=== PATIENT | female | born 1940 | race Caucasian/White ===

== ENCOUNTER 2017-08-09 10:57 | Emergency (ER) | payer OTHER ==
[~2017-08-09] VITALS: Ht 165.1 cm; Wt 65.8 kg
[~2017-08-09 10:57] MED LIST: ADVAIR 100-501 EACH; ALBUTEROL1.25 MG/3; AMLODIPINE BESYL5 MG PO; CLOTRIMAZOLE10 MG MM; IPRATROPIU0.2 MG/1 M IH; MEDROLPACK PO; NORVASC5 MG; SYNTHROID112 MCG; Tussi-Organidin Dm-S PO; XARELTO20 MG; XARELTO20 MG PO; XOPENEX0.63 MG/3 IH; ZOLPIDEM TARTRAT5 MG PO
[2017-08-09] MEDS ORDERED: DICLOFENAC SODI50 MG PO (15:30)
== END 2017-08-09 16:12 | disposition home or self-care (01) ==
LOC: ER 10:57
DX: M79.632 Pain in left forearm (principal)

== ENCOUNTER 2018-02-06 19:36 | Emergency (ER) | payer OTHER ==
[~2018-02-06] VITALS: Ht 160 cm; Wt 67.1 kg
[~2018-02-06 19:36] MED LIST changes: +DICLOFENAC SODI50 MG PO
[2018-02-07] MEDS ORDERED: MECLIZINE HCL25 MG PO (01:28)
== END 2018-02-07 02:04 | disposition home or self-care (01) ==
LOC: ER 19:36
DX: R42 Dizziness and giddiness (principal); M25.512 Pain in left shoulder

== ENCOUNTER 2018-07-05 11:29 | Outpatient (CLI) | payer OTHER ==
[~2018-07-05 11:29] MED LIST changes: +MECLIZINE HCL25 MG PO
== END 2018-07-05 14:54 | disposition home or self-care (01) ==
LOC: MRI 11:29
DX: I63.89 Other cerebral infarction (principal)
CPT/HCPCS: 70551

== ENCOUNTER 2018-09-01 19:42 | Emergency (ER) | payer OTHER ==
[~2018-09-01] VITALS: Ht 162.6 cm; Wt 79.4 kg
[2018-09-01] MEDS ORDERED: NORVASC2.5 M1 (19:58)
[2018-09-01] MEDS ORDERED: LIPITOR20 MG (19:59)
== END 2018-09-01 22:20 | disposition home or self-care (01) ==
LOC: ER 19:42
DX: M54.31 Sciatica, right side (principal)

== ENCOUNTER 2018-09-06 13:37 | Emergency (ER) | payer OTHER ==
[~2018-09-06] VITALS: Ht 162.6 cm; Wt 63.5 kg
[~2018-09-06 13:37] MED LIST changes: +LIPITOR20 MG; +NORVASC2.5 M1
[2018-09-06] MEDS ORDERED: AMBIEN5 MG PO (13:53)
[2018-09-06] MEDS ORDERED: ATORVASTATIN CA20 MG PO (13:54)
[2018-09-06] MEDS ORDERED: AMITRIPTYLINE H10 MG PO (13:54)
[2018-09-06] MEDS ORDERED: HYOSCYAMINE0.125 M2 PO (13:54)
[2018-09-06] MEDS ORDERED: REXULTI0.25 MG (13:55)
[2018-09-06] MEDS ORDERED: AMITIZA24 MCG PO (13:55)
== END 2018-09-06 16:09 | disposition home or self-care (01) ==
LOC: ER 13:37
DX: G57.01 Lesion of sciatic nerve, right lower limb (principal)

== ENCOUNTER 2019-01-10 18:35 | Emergency (ER) | payer OTHER ==
[~2019-01-10] VITALS: Ht 162.6 cm; Wt 70.3 kg
[~2019-01-10 18:35] MED LIST changes: +AMBIEN5 MG PO; +AMITIZA24 MCG PO; +AMITRIPTYLINE H10 MG PO; +ATORVASTATIN CA20 MG PO; +HYOSCYAMINE0.125 M2 PO; +REXULTI0.25 MG
[2019-01-10] MEDS ORDERED: ARNUITY ELLIP100 MCG IH (18:45)
[2019-01-10] MEDS ORDERED: PROAIR RESPICL90 MCG IH (18:46)
[2019-01-10] MEDS ORDERED: PREDNISOLONE OP (18:46)
[2019-01-10] MEDS ORDERED: SPIRIVA RESPIMAT4 GM IH (18:46)
== END 2019-01-10 21:14 | disposition home or self-care (01) ==
LOC: ER 18:35
DX: J45.998 Other asthma (principal)

== ENCOUNTER → 2019-05-09 | Outpatient (CLI) | payer OTHER ==
[~2019-05-09] MED LIST changes: +ARNUITY ELLIP100 MCG IH; +PREDNISOLONE OP; +PROAIR RESPICL90 MCG IH; +SPIRIVA RESPIMAT4 GM IH
== END | disposition home or self-care (01) ==
LOC: RAD 14:29
DX: M19.012 Primary osteoarthritis, left shoulder (principal); M75.52 Bursitis of left shoulder

== ENCOUNTER 2019-07-06 06:15 | Day surgery (SDC) | payer OTHER | END 2019-07-06 12:45 | disposition home or self-care (01) | LOC: AMB-ENDOS 06:15 | DX: K62.89 Other specified diseases of anus and rectum (principal); K57.30 Diverticulosis of large intestine without perforation or abscess without bleeding; Z12.11 Encounter for screening for malignant neoplasm of colon ==

== ENCOUNTER 2019-09-20 12:28 | Emergency (ER) | payer OTHER ==
[~2019-09-20] VITALS: Ht 162.6 cm; Wt 72.6 kg
[2019-09-20] MEDS ORDERED: MEDROLPACK PO (14:57)
[2019-09-20] MEDS ORDERED: NORFLEX100MG PO (14:57)
== END 2019-09-20 15:11 | disposition home or self-care (01) ==
LOC: ER 12:28
DX: M54.5 Low back pain (principal)

== ENCOUNTER 2020-02-14 11:45 | Inpatient (IN) | payer OTHER ==
[~2020-02-14] VITALS: Ht 162.6 cm; Wt 73.5 kg
[~2020-02-14 11:45] MED LIST changes: +NORFLEX100MG PO
[2020-02-14] MEDS ORDERED: AMBIEN5 MG PO (14:58)
[2020-02-24] MEDS ORDERED: PERCOCET 5-3251 EACH PO (09:15)
[2020-02-24] MEDS ORDERED: PRILOSEC OTC20 MG PO (09:15)
== END 2020-02-24 10:59 | disposition home or self-care (01) | DRG 330 ==
LOC: ADM 11:45 → EDSTATUS 11:45 → SURH 02-21 05:30 → O/R 02-21 05:30 → SURH 02-21 07:00
PROVIDERS: ADMIT Surgery; ATTEND Surgery
PROC: 0DBN4ZZ Excision of Sigmoid Colon, Percutaneous Endoscopic Approach (ICD-10-PCS; 2020-02-21)
PROC: 0DJD8ZZ Inspection of Lower Intestinal Tract, Via Natural or Artificial Opening Endoscopic (ICD-10-PCS; 2020-02-21)
PROC: 4A12X4Z Monitoring of Cardiac Electrical Activity, External Approach (ICD-10-PCS; 2020-02-21)
PROC: 0DTP4ZZ Resection of Rectum, Percutaneous Endoscopic Approach (ICD-10-PCS; principal; 2020-02-21 07:00)
PROC: 3E0F7SF Introduction of Other Gas into Respiratory Tract, Via Natural or Artificial Opening (ICD-10-PCS; 2020-02-23)
DX: K57.30 Diverticulosis of large intestine without perforation or abscess without bleeding (principal); D68.61 Antiphospholipid syndrome; K59.09 Other constipation; I12.9 Hypertensive chronic kidney disease with stage 1 through stage 4 chronic kidney disease, or unspecified chronic kidney disease; N18.2 Chronic kidney disease, stage 2 (mild); Z95.828 Presence of other vascular implants and grafts; Z86.711 Personal history of pulmonary embolism; Z79.01 Long term (current) use of anticoagulants; J45.20 Mild intermittent asthma, uncomplicated

== ENCOUNTER 2020-06-20 10:23 | Outpatient (CLI) | payer OTHER ==
[~2020-06-20 10:23] MED LIST changes: +PERCOCET 5-3251 EACH PO; +PRILOSEC OTC20 MG PO
== END 2020-06-20 15:41 | disposition home or self-care (01) ==
LOC: TOM 10:23
PROVIDERS: ATTEND Internal Medicine Pulmonary Disease
DX: J45.41 Moderate persistent asthma with (acute) exacerbation (principal); R06.9 Unspecified abnormalities of breathing; I26.99 Other pulmonary embolism without acute cor pulmonale
CPT/HCPCS: 71260; Q9965

== ENCOUNTER 2020-12-03 18:42 | Emergency (ER) | payer OTHER ==
[~2020-12-03] VITALS: Ht 162.6 cm; Wt 74.4 kg
[2020-12-03] MEDS ORDERED: LEVSIN0.125 MG (19:16)
[2020-12-03] MEDS ORDERED: NEURONTIN300 MG (19:17)
[2020-12-03] MEDS ORDERED: AMITIZA24 MCG (19:17)
[2020-12-03] MEDS ORDERED: PROTONIX40 MG (19:18)
[2020-12-03] MEDS ORDERED: AMITRIPTYLINE H10 MG (19:18)
== END 2020-12-04 00:18 | disposition home or self-care (01) ==
LOC: ER 18:42
DX: S40.012A Contusion of left shoulder, initial encounter (principal); S30.0XXA Contusion of lower back and pelvis, initial encounter; S70.02XA Contusion of left hip, initial encounter; S70.01XA Contusion of right hip, initial encounter; S80.02XA Contusion of left knee, initial encounter; S00.83XA Contusion of other part of head, initial encounter; W18.39XA Other fall on same level, initial encounter; Y93.89 Activity, other specified; Y92.89 Other specified places as the place of occurrence of the external cause; Y99.8 Other external cause status

== ENCOUNTER 2021-03-01 12:31 | Emergency (ER) | payer OTHER ==
[~2021-03-01] VITALS: Ht 162.6 cm; Wt 72.6 kg
[~2021-03-01 12:31] MED LIST changes: +AMITIZA24 MCG; +AMITRIPTYLINE H10 MG; +LEVSIN0.125 MG; +NEURONTIN300 MG; +PROTONIX40 MG
[2021-03-01] MEDS ORDERED: MEDROLPACK PO (13:25)
== END 2021-03-01 13:39 | disposition home or self-care (01) ==
LOC: ER 12:31
DX: M25.512 Pain in left shoulder (principal)

== ENCOUNTER 2021-08-04 12:00 | Day surgery (SDC) | payer OTHER | END 2021-08-04 16:20 | disposition home or self-care (01) | LOC: AMB-ENDOS 12:00 | PROVIDERS: ATTEND Surgery | DX: D12.3 Benign neoplasm of transverse colon (principal); K57.30 Diverticulosis of large intestine without perforation or abscess without bleeding; Z20.822 Contact with and (suspected) exposure to COVID-19; E03.9 Hypothyroidism, unspecified; E78.5 Hyperlipidemia, unspecified; I10 Essential (primary) hypertension; I80.00 Phlebitis and thrombophlebitis of superficial vessels of unspecified lower extremity; K59.09 Other constipation; Z79.01 Long term (current) use of anticoagulants ==

== ENCOUNTER 2021-10-30 12:11 | Inpatient (IN) | payer OTHER ==
[~2021-10-30] VITALS: Ht 152.4 cm; Wt 71.2 kg
[2021-10-31] MEDS ORDERED: FLUTICASONE-SA1 EAC4 (11:53)
[2021-10-31] MEDS ORDERED: CHLORDIAZEPOXI1 EACH (11:54)
[2021-10-31] MEDS ORDERED: DORZOLAMIDE HCL10 ML (11:54)
[2021-10-31] MEDS ORDERED: MONTELUKAST SOD10 MG (11:54)
[2021-10-31] MEDS ORDERED: VALACYCLOVIR500 MG (11:54)
[2021-10-31] MEDS ORDERED: ALENDRONATE SOD70 MG (11:54)
[2021-10-31] MEDS ORDERED: ALPHAGAN P5 M2 (11:54)
[2021-10-31] MEDS ORDERED: ESTRADIOL10 MCG (11:54)
[2021-10-31] MEDS ORDERED: HYOSCYAMINE0.125 M1 (11:55)
== END 2021-11-02 16:20 | disposition home or self-care (01) | DRG 305 ==
LOC: ER 12:11 → SURG 20:26 → SEC-K 20:26 → SURG 22:55
PROVIDERS: ADMIT Internal Medicine; ATTEND Internal Medicine
DX: I16.1 Hypertensive emergency (principal); I24.9 Acute ischemic heart disease, unspecified; I11.9 Hypertensive heart disease without heart failure

== ENCOUNTER 2021-11-24 11:29 | Outpatient (CLI) | payer OTHER ==
[~2021-11-24 11:29] MED LIST changes: +ALENDRONATE SOD70 MG; +ALPHAGAN P5 M2; +CHLORDIAZEPOXI1 EACH; +DORZOLAMIDE HCL10 ML; +ESTRADIOL10 MCG; +FLUTICASONE-SA1 EAC4; +HYOSCYAMINE0.125 M1; +MONTELUKAST SOD10 MG; +VALACYCLOVIR500 MG
== END 2021-11-24 11:34 | disposition home or self-care (01) ==
LOC: NUCLEAR 11:29
PROVIDERS: ATTEND Internal Medicine
DX: R00.1 Bradycardia, unspecified (principal); I27.0 Primary pulmonary hypertension; I25.10 Atherosclerotic heart disease of native coronary artery without angina pectoris; I70.8 Atherosclerosis of other arteries; I70.0 Atherosclerosis of aorta; I73.9 Peripheral vascular disease, unspecified; I87.2 Venous insufficiency (chronic) (peripheral); I67.2 Cerebral atherosclerosis

== ENCOUNTER → 2022-03-30 09:42 | Outpatient (CLI) | payer OTHER | END | disposition home or self-care (01) | LOC: LAB 09:42 | PROVIDERS: ATTEND Internal Medicine Hematology & Oncology | DX: D50.8 Other iron deficiency anemias (principal); I10 Essential (primary) hypertension; R74.02 Elevation of levels of lactic acid dehydrogenase [LDH]; K76.89 Other specified diseases of liver; D47.2 Monoclonal gammopathy; C90.00 Multiple myeloma not having achieved remission; E55.9 Vitamin D deficiency, unspecified; D68.59 Other primary thrombophilia; E72.12 Methylenetetrahydrofolate reductase deficiency; E72.11 Homocystinuria; I80.299 Phlebitis and thrombophlebitis of other deep vessels of unspecified lower extremity; I26.99 Other pulmonary embolism without acute cor pulmonale; M15.0 Primary generalized (osteo)arthritis; J45.909 Unspecified asthma, uncomplicated ==

== ENCOUNTER 2022-06-04 15:27 | Emergency (ER) | payer OTHER ==
[~2022-06-04] VITALS: Ht 162.6 cm; Wt 70.3 kg
[2022-06-04] MEDS ORDERED: MACRODANTIN100 M1 PO (20:03)
== END 2022-06-04 20:21 | disposition home or self-care (01) ==
LOC: ER 15:27
DX: N39.0 Urinary tract infection, site not specified (principal); J45.909 Unspecified asthma, uncomplicated; I11.0 Hypertensive heart disease with heart failure; I50.9 Heart failure, unspecified

== ENCOUNTER 2022-06-16 10:54 | Outpatient (CLI) | payer OTHER ==
[~2022-06-16 10:54] MED LIST changes: +MACRODANTIN100 M1 PO
== END 2022-06-16 10:57 | disposition home or self-care (01) ==
LOC: NUCLEAR 10:54
PROVIDERS: ATTEND Internal Medicine Cardiovascular Disease
DX: I26.99 Other pulmonary embolism without acute cor pulmonale (principal)
CPT/HCPCS: 78580; A9540

== ENCOUNTER 2022-06-24 10:18 | Outpatient (CLI) | payer OTHER | END 2022-06-24 10:30 | disposition home or self-care (01) | LOC: TOM 10:18 | PROVIDERS: ATTEND Internal Medicine Cardiovascular Disease | DX: I82.499 Acute embolism and thrombosis of other specified deep vein of unspecified lower extremity (principal) | CPT/HCPCS: 71260; Q9965 ==

== ENCOUNTER 2022-09-25 14:47 | Emergency (ER) | payer OTHER ==
[~2022-09-25] VITALS: Ht 162.6 cm; Wt 70.8 kg
== END 2022-09-25 19:33 | disposition home or self-care (01) ==
LOC: ER 14:47
DX: N39.0 Urinary tract infection, site not specified (principal); Z86.711 Personal history of pulmonary embolism; Z20.822 Contact with and (suspected) exposure to COVID-19

== ENCOUNTER 2023-01-07 07:16 | Outpatient (CLI) | payer OTHER | END 2023-01-07 07:21 | disposition home or self-care (01) | LOC: NUCLEAR 07:16 | PROVIDERS: ATTEND Surgery | DX: K59.09 Other constipation (principal); K57.30 Diverticulosis of large intestine without perforation or abscess without bleeding; K58.1 Irritable bowel syndrome with constipation | CPT/HCPCS: 78264; A9541 ==

== ENCOUNTER 2023-10-26 07:23 | Outpatient (CLI) | payer OTHER | END 2023-10-26 07:26 | disposition home or self-care (01) | LOC: NUCLEAR 07:23 | PROVIDERS: ATTEND Internal Medicine Cardiovascular Disease | DX: I20.9 Angina pectoris, unspecified (principal) | CPT/HCPCS: 78452; 93017; A9500; J0153 ==

== ENCOUNTER 2024-06-26 11:02 | Emergency (ER) | payer OTHER ==
[~2024-06-26] VITALS: Ht 165.1 cm; Wt 71.7 kg
[2024-06-26 14:11] LABS: HEMATOCRIT 41.9 % (36.0-45.00); HEMOGLOBIN 13.6 g/dL (12.0-15.00); MEAN CELL VOLUME 95.3 fL (80.00-100.00); MEAN CORPUSCULAR HEMOGLOBIN 30.9 pg (27.00-32.0); MEAN CORPUSCULAR HGB CONC 32.4 g/dl (32.0-36.0); PLATELET COUNT 185 K/uL (150-450); RED CELL DISTRIBUTION WIDTH 13.5 % (11.5-14.5)
[2024-06-26 14:31] LABS: PH,URINE 7.5 (5.0-8.0); URINE APPEARANCE Clear; URINE BILIRRUBIN Negative (NEGATIVE); URINE BLOOD Negative; URINE COLOR Yellow; URINE GLUCOSE Negative (NEGATIVE); URINE KETONE Negative (NEGATIVE); URINE LEUKOCYTE Moderate; URINE NITRATE Negative; URINE PROTEIN Negative (NEGATIVE); URINE UROBILINOGEN 0.2 E.U./dl
[2024-06-26 14:44] LABS: ALBUMIN 3.5 gm/dL (3.4-5.0); BILIRUBIN TOTAL 0.63 mg/dL (0.3-1.2); CALCIUM 10.7 mg/dL (8.5-10.1); CREATININE SERUM 0.79 mg/dL (0.55-1.02); GLOBULINA 3.5 G/DL (2.4-3.5); POTASSIUM 3.97 mEq/L (3.5-5.1)
[2024-06-26 14:54] LABS: PARTIAL THROMBOPLASTIN TIME 24.4 SECONDS (22.0-34.0); PROTHROMBIN TIME 10.9 SECONDS (9.0-11.5)
[2024-06-26 15:02] LABS: URINE BACTERIA 81.9 uL (0.0-1933); URINE EPITHELIAL CELLS 5.3 uL (0.0-38.8); URINE WBC 82.5 uL (0.0-23.2)
[2024-06-26 15:24] LABS: URINE RBC 1.4 uL (0.0-20.8)
[2024-06-26] MEDS ORDERED: XOPENEX CO1.25 MG/0. IH (17:28)
[2024-06-26] MEDS ORDERED: MACRODANTIN100 MG PO (17:28)
[2024-06-26 18:41] LABS: ABG PH 7.414 (7.35-7.45)
[2024-06-26 18:42] LABS: ABG PO2 81.9 mmHg (80-100); ABG pCO2 34.5 mmHg (35-45); BASE EXCESS -2.2 mmol/l; BICARBONATE 21.6 mmol/l (23-25); Tco2 22.7 mmol/l; o2 21 %
[2024-06-26 18:43] LABS: SaO2 96.1 %; allen test SATISFACTORY; puncture site RADIAL RIGHT
== END 2024-06-26 17:47 | disposition home or self-care (01) ==
LOC: ER 11:05
PROVIDERS: Emergency Medicine
DX: R06.02 Shortness of breath (principal)
CPT/HCPCS: 36415; 71045; 71260; 82803; 93041; 99284; Q9965

== ENCOUNTER 2024-08-03 16:19 | Emergency (ER) | payer OTHER ==
[~2024-08-03] VITALS: Ht 165.1 cm; Wt 71.7 kg
[~2024-08-03 16:19] MED LIST changes: +MACRODANTIN100 MG PO; +XOPENEX CO1.25 MG/0. IH
[2024-08-03] MEDS ORDERED: VALACYCLOVIR500 MG PO (16:59)
[2024-08-03] MEDS ORDERED: LEVOTHYROXINE25 MCG PO (17:05)
[2024-08-03] MEDS ORDERED: [UNRECOGNIZED DRUG - OTHER] (17:06)
[2024-08-03] MEDS ORDERED: MEDROLPACK PO (19:18)
[2024-08-03] MEDS ORDERED: ORPHENADRINE CITRATE 30 MG/ML AMPUL ONE (19:19)
[2024-08-03] MEDS ORDERED: KETOROLAC TROMETHAMINE 60 MG VIAL IM ONE ×2 (19:20→19:30)
[2024-08-03] MEDS ORDERED: ORPHENADRINE CITRATE 30 MG/ML AMPUL IM ONE (19:30)
== END 2024-08-03 19:27 | disposition home or self-care (01) ==
LOC: ER 16:20
DX: M79.605 Pain in left leg (principal); M79.604 Pain in right leg; Z86.711 Personal history of pulmonary embolism; M19.90 Unspecified osteoarthritis, unspecified site; J45.909 Unspecified asthma, uncomplicated; I10 Essential (primary) hypertension
CPT/HCPCS: 96372; 99282; J1885; J2360

== ENCOUNTER 2025-02-05 11:04 | Inpatient (IN) | payer OTHER ==
[~2025-02-05] VITALS: Ht 152.4 cm; Wt 81.6 kg
[~2025-02-05 11:04] MED LIST changes: +LEVOTHYROXINE25 MCG PO; +VALACYCLOVIR500 MG PO; +[UNRECOGNIZED DRUG - OTHER]
[2025-02-05] MEDS ORDERED: TOPROL XL25 M1 (11:18)
[2025-02-05] MEDS ORDERED: ALENDRONATE SOD10 MG (11:18)
[2025-02-05] MEDS ORDERED: AMLODIPINE-OLM1 EAC3 (11:18)
[2025-02-05] MEDS ORDERED: MORPHINE SULFATE 4 MG/ML CARTRIDGE IV ONE (11:30)
[2025-02-05] MEDS ORDERED: 0.9 % SODIUM CHLORIDE 1,000 ML IV ONE (11:30)
[2025-02-05 12:15] LABS: BASO % 0.7 % (0.1-1.2); EOS # 0.39 (0.04-0.54); EOS % 4.6 % (0.7-7.0); LYMPH # 1.80 (1.18-3.74); LYMPH % 21.0 % (19.3-53.1); MEAN PLATELET VOLUME 11.80 fl (9.4-12.4); MONO # 0.63 (0.24-0.82); MONO % 7.4 % (4.7-12.5); NEUT # 5.67 (1.56-6.13); NEUT % 66.1 % (34.0-71.1); RED CELL DISTRIBUTION WIDTH 13.2 % (11.6-14.4)
[2025-02-05 12:38] LABS: INR 1.03
[2025-02-05 12:41] LABS: ALT/SGPT 24.0 U/L (12-78); AST/SGOT 15.0 U/L (15-37); BILIRUBIN TOTAL 0.69 mg/dL (0.3-1.2); BUN CREA RATIO 20.0 (7.0-25.0); CREATININE SERUM 0.79 mg/dL (0.55-1.02); GFR 69.0; GLOBULINA 3.3 G/DL (2.4-3.5); GLUCOSE FASTING 116.0 mg/dL (65-100); OSMOLALITY SERUM 293.0 MOSM/KG (275-295)
[2025-02-05 12:53] LABS: D DIMER < 0.19 MG/L
[2025-02-05 14:23] LABS: URINE APPEARANCE Cloudy; URINE BILIRRUBIN Negative (NEGATIVE); URINE BLOOD Negative; URINE COLOR Yellow; URINE GLUCOSE Negative (NEGATIVE); URINE KETONE Negative (NEGATIVE); URINE LEUKOCYTE Large; URINE NITRATE Negative; URINE PROTEIN Negative (NEGATIVE); URINE UROBILINOGEN 0.2 E.U./dl
[2025-02-05 14:27] LABS: URINE BACTERIA 604.7 uL (0.0-1933); URINE EPITHELIAL CELLS 30.9 uL (0.0-38.8); URINE RBC 4.3 uL (0.0-20.8); URINE WBC 298.4 uL (0.0-23.2)
[2025-02-05 14:35] LABS: URINE CAST 0.14 uL (0.0-1.40)
[2025-02-05] MEDS ORDERED: ENOXAPARIN SODIUM 80 MG/0.8 ML SYRINGE SUBCUTANEO ONE (15:15)
[2025-02-05] MEDS ORDERED: ENOXAPARIN SODIUM 100 MG/ML SYRINGE SUBCUTANEO ONE ×2 (15:30→17:00)
[2025-02-05] MEDS ORDERED: METOPROLOL TARTRATE 25 MG TABLET PO SCH (17:07)
[2025-02-05] MEDS ORDERED: ENOXAPARIN SODIUM 80 MG/0.8 ML SYRINGE SUBCUTANEO SCH (17:08)
[2025-02-05] MEDS ORDERED: AMLODIPINE BESYLATE 5 MG TABLET PO SCH (17:08)
[2025-02-05] MEDS ORDERED: ATORVASTATIN CALCIUM 40 MG TABLET PO SCH (17:08)
[2025-02-05] MEDS ORDERED: DEXTROSE 5 % AND 0.9 % NACL 1,000 ML IV SCH (17:15)
[2025-02-05] MEDS ORDERED: GABAPENTIN 300 MG CAPSULE PO SCH (17:37)
[2025-02-05 17:47] VITALS: BP 156/70; O2SAT 96
[2025-02-05] MEDS ORDERED: hydrALAZINE HCL 20 MG VIAL IV PRN (18:15)
[2025-02-05] MEDS ORDERED: ZOLPIDEM TARTRATE 5 MG TABLET PO SCH (21:00)
[2025-02-06 01:22] VITALS: BP 150/74; O2SAT 97
[2025-02-06] MEDS ORDERED: ENOXAPARIN SODIUM 100 MG/ML SYRINGE SUBCUTANEO SCH (05:00)
[2025-02-06 05:54] LABS: INR 1.0
[2025-02-06] MEDS ORDERED: LEVOTHYROXINE SODIUM 25 MCG TABLET PO SCH (06:00)
[2025-02-06 08:58] VITALS: BP 137/78; O2SAT 95
[2025-02-06] MEDS ORDERED: GABAPENTIN 100 MG CAPSULE PO SCH (09:00)
[2025-02-06 15:30] VITALS: BP 152/75; O2SAT 94
[2025-02-07 01:15] VITALS: BP 143/73; O2SAT 96
[2025-02-07 09:37] VITALS: BP 149/75; O2SAT 98
[2025-02-07 11:29] LABS: INR 1.03
[2025-02-07] MEDS ORDERED: Cyanocobalamin/Mecobalamin 1 TAB.SL SL SCH (17:00)
[2025-02-07 18:01] VITALS: BP 153/78; O2SAT 97
[2025-02-08 03:17] VITALS: BP 129/75; O2SAT 95
[2025-02-08] MEDS ORDERED: APIXABAN 5 MG TABLET PO SCH (09:00)
[2025-02-08 09:10] VITALS: BP 143/80; O2SAT 94
[2025-02-08] MEDS ORDERED: MINERAL OIL 30 ML BLIST.PACK PO NR (10:00)
[2025-02-08] MEDS ORDERED: LACTULOSE 20 G/30 ML BLIST.PACK PO NR (10:00)
[2025-02-08] MEDS ORDERED: MAGNESIUM HYDROXIDE 30 ML BLIST.PACK PO NR (10:00)
[2025-02-08 20:31] VITALS: BP 136/77; O2SAT 96
[2025-02-09 03:03] VITALS: BP 113/68; O2SAT 95
[2025-02-09 08:27] VITALS: BP 140/75; O2SAT 96
[2025-02-09] MEDS ORDERED: ELIQUIS5 MG PO (12:37)
[2025-02-09] MEDS ORDERED: DULCOLAX5 MG PO (12:37)
[2025-02-09] MEDS ORDERED: INTEGRA PLUS C1 EACH PO (12:37)
[2025-02-09] MEDS ORDERED: Neurin-Sl Tablet Sl SL (12:37)
[2025-02-09] MEDS ORDERED: PEPCID AC20 MG PO (12:37)
[2025-02-09] MEDS ORDERED: B Complex PO (12:37)
[2025-02-09] MEDS ORDERED: PROTONIX40 MG PO (12:37)
[2025-02-09] MEDS ORDERED: LIPITOR40 M1 PO (12:37)
[2025-02-09] MEDS ORDERED: AMLODIPINE BESYL5 MG PO (12:37)
[2025-02-09] MEDS ORDERED: GABAPENTIN100 MG PO (12:37)
[2025-02-09] MEDS ORDERED: LEVOTHYROXINE25 MCG PO (12:37)
[2025-02-09] MEDS ORDERED: APIXABAN 5 MG TABLET PO SCH (17:00)
[2025-02-12] MEDS ORDERED: APIXABAN 5 MG TABLET PO SCH (09:00)
[2025-02-15] MEDS ORDERED: APIXABAN 5 MG TABLET PO SCH (09:00)
== END 2025-02-09 15:23 | disposition home or self-care (01) | DRG 299 ==
LOC: ER 11:04 → SEC-K 17:10 → MEDJ 17:10
PROVIDERS: General Practice; ADMIT Internal Medicine; ATTEND Internal Medicine
PROC: BW24YZZ Computerized Tomography (CT Scan) of Chest and Abdomen using Other Contrast (ICD-10-PCS; principal; 2025-02-05)
PROC: B54CZZZ Ultrasonography of Left Lower Extremity Veins (ICD-10-PCS; 2025-02-05)
PROC: 4A12X4Z Monitoring of Cardiac Electrical Activity, External Approach (ICD-10-PCS; 2025-02-05)
DX: I82.402 Acute embolism and thrombosis of unspecified deep veins of left lower extremity (principal); I26.99 Other pulmonary embolism without acute cor pulmonale; I10 Essential (primary) hypertension

== ENCOUNTER 2025-04-10 11:59 | Emergency (ER) | payer OTHER ==
[~2025-04-10] VITALS: Ht 165.1 cm; Wt 76.2 kg
[~2025-04-10 11:59] MED LIST changes: +ALENDRONATE SOD10 MG; +AMLODIPINE-OLM1 EAC3; +B Complex PO; +DULCOLAX5 MG PO; +ELIQUIS5 MG PO; +GABAPENTIN100 MG PO; +INTEGRA PLUS C1 EACH PO; +LIPITOR40 M1 PO; +Neurin-Sl Tablet Sl SL; +PEPCID AC20 MG PO; +PROTONIX40 MG PO; +TOPROL XL25 M1
[2025-04-10 12:13] VITALS: BP 169/73; O2SAT 96
[2025-04-10] MEDS ORDERED: NEURONTIN300 MG PO (12:21)
[2025-04-10] MEDS ORDERED: ARICEPT5 MG PO (12:22)
[2025-04-10] MEDS ORDERED: FOLIVANE-PLUS1 EACH PO (12:22)
[2025-04-10] MEDS ORDERED: ABANEU-SL TABL1 EACH SL (12:23)
[2025-04-10] MEDS ORDERED: REXULTI4 MG PO (12:23)
[2025-04-10] MEDS ORDERED: ONDANSETRON HCL 2 MG/ML VIAL IV STA (13:19)
[2025-04-10] MEDS ORDERED: 0.9 % SODIUM CHLORIDE 1,000 ML IV STA (13:19)
[2025-04-10] MEDS ORDERED: FAMOTIDINE/PF 20 MG/2 ML VIAL IV STA (13:19)
[2025-04-10] MEDS ORDERED: ONDANSETRON HCL 2 MG/ML VIAL ONE (13:38)
[2025-04-10] MEDS ORDERED: FAMOTIDINE/PF 20 MG/2 ML VIAL ONE (13:39)
[2025-04-10 14:44] LABS: BASO % 0.6 % (0.1-1.2); EOS # 0.17 (0.04-0.54); EOS % 2.1 % (0.7-7.0); LYMPH # 2.05 (1.18-3.74); LYMPH % 25.5 % (19.3-53.1); MEAN PLATELET VOLUME 11.50 fl (9.4-12.4); MONO # 0.53 (0.24-0.82); MONO % 6.6 % (4.7-12.5); NEUT # 5.21 (1.56-6.13); NEUT % 64.8 % (34.0-71.1); RED CELL DISTRIBUTION WIDTH 13.4 % (11.6-14.4)
[2025-04-10 14:57] LABS: ERYTHROCYTE SEDIMENTATION RATE 13 mm/hr (0-30)
[2025-04-10 15:05] LABS: INR 1.01
[2025-04-10 15:06] LABS: COVID-19 AG NEGATIVE (NEGATIVE)
[2025-04-10 15:21] LABS: BUN CREA RATIO 21.0 (7.0-25.0); CREATININE SERUM 0.57 mg/dL (0.55-1.02); GFR 100.33; GLUCOSE FASTING 106.0 mg/dL (65-100); OSMOLALITY SERUM 289.0 MOSM/KG (275-295)
[2025-04-10 17:29] LABS: URINE APPEARANCE Clear; URINE BILIRRUBIN Negative (NEGATIVE); URINE BLOOD Negative; URINE COLOR Yellow; URINE GLUCOSE Negative (NEGATIVE); URINE KETONE Negative (NEGATIVE); URINE LEUKOCYTE Small; URINE NITRATE Negative; URINE PROTEIN Negative (NEGATIVE); URINE UROBILINOGEN 0.2 E.U./dl
[2025-04-10 17:31] LABS: URINE BACTERIA 40.0 uL (0.0-1933); URINE EPITHELIAL CELLS 5.3 uL (0.0-38.8); URINE RBC 4.8 uL (0.0-20.8); URINE WBC 96.7 uL (0.0-23.2)
[2025-04-10 17:43] LABS: URINE CAST 0.28 uL (0.0-1.40)
== END 2025-04-10 20:11 | disposition home or self-care (01) ==
LOC: ER 11:59
PROVIDERS: General Practice
DX: R55 Syncope and collapse (principal); R42 Dizziness and giddiness; R53.1 Weakness; I10 Essential (primary) hypertension; Z20.822 Contact with and (suspected) exposure to COVID-19
CPT/HCPCS: 36415; 70450; 71045; 93005; 96365; 96366; 99284; J2405; J3490; J7030